=== PATIENT | male | born 1970 | race African-American/Black ===

== ENCOUNTER 2016-06-22 17:11 | Inpatient (IN) | payer SELFPAY ==
[~2016-06-22] VITALS: Ht 193 cm; Wt 77.5 kg
[2016-06-22 17:38] LABS: Urine RBC None Seen /hpf (0 - 3)
[2016-06-22 17:58] LABS: Urine Bilirubin Negative (Negative); Urine Blood Negative /uL (Negative); Urine Color Yellow (Yellow); Urine Glucose Normal (Normal); Urine Ketone Negative (Negative); Urine Nitrite Negative (Negative); Urine Squamous Epithelial Cell FEW /hpf (<5); Urine Urobilinogen Normal (Negative); Urine pH 8.5 (5.0-8.0)
[2016-06-22 17:59] LABS: Basophils # (auto) 0 uL; DEFINITIVE VIEW TRANSMISSION; Eosinophils # (auto) 0 uL; Hematocrit 20.3 % (41.0-53.0); Lymphocytes # (auto) 0.3 uL; Mean Corpuscular Hemoglobin 17.6 pg (28.0-32.0); Mean Corpuscular Hgb Conc. 30.9 g/dL (32.0-36.0); Mean Corpuscular Volume 56.8 fL (80.0-100.0); Mean Platelet Volume 7.4 fL (7.4-10.4); Monocytes # (auto) 0.2 uL; Monocytes % (auto) 2.6 % (0.0-12.0); Neutrophils # (auto) 7.6 uL; Neutrophils % (auto) 93.4 % (37.0-80.0); Platelet Count (auto) 705 10^3/uL (140-450); Red Cell Distribution Width 18.6 % (11.6-16.0); White Blood Cell 8.2 10^3/uL (4.4-10.8)
[2016-06-22 18:09] LABS: Hemoglobin 6.3 g/dL (13.5-17.5)
[2016-06-22 18:20] LABS: Albumin 2.9 g/dL (3.4-5.0); BUN/Creatinine Ratio 9.6; Bilirubin, Total 0.3 mg/dL (0.2-1.0); Potassium 3.6 mmol/L (3.5-5.1); Total Protein 7.4 g/dL (6.4-8.2)
[2016-06-22 18:20] LABS: Anisocytosis Slight; Hypochromia Marked; Microcytosis Marked; Ovalocytes FEW; Platelet Estimate Increased; Schistocytes FEW; Tear Drop Cells FEW
[2016-06-22] MEDS ORDERED: SODIUM CHLORIDE 0.9% 1,000 ML IV ONE ×2 (19:00→19:45)
[2016-06-22] MEDS ORDERED: ONDANSETRON HCL 4 MG/2 ML VIAL IV ONE (19:30)
[2016-06-22] MEDS ORDERED: MORPHINE SULFATE 4 MG/ML SYRG IV ONE (19:45)
[2016-06-22] MEDS ORDERED: PANTOPRAZOLE SODIUM 40 MG/10 ML VIAL IV ONE (19:45)
[2016-06-22] MEDS ORDERED: HYDROmorphone HCL 2 MG/ML VL IV ONE (20:30)
[2016-06-22 20:56] LABS: INR 0.95 (0.9-1.15); Partial Thromboplastin Time 24.1 sec (22.64-33.71); Prothrombin Time 10.3 sec (9.37-12.3)
[2016-06-22] MEDS ORDERED: cefTRIAXone 1GM/50ML D5W 50 ML IV ONE (21:15)
[2016-06-22] MEDS ORDERED: metroNIDAZOLE 500MG/100ML 100 ML IV ONE (21:15)
[2016-06-22] MEDS ORDERED: NITROGLYCERIN 0.4 MG SL TAB SL PRN (23:45)
[2016-06-22] MEDS: SODIUM CHLORIDE 0.9% 1,000 ML IV SCH (23:45)
[2016-06-22] MEDS ORDERED: MORPHINE SULF INJ 2 MG/ML SYRINGE 1ML IV PRN (23:45)
[2016-06-23] VITALS (17 sets, daily range): BP systolic 126–148; BP diastolic 65–94
[2016-06-23] MEDS ORDERED: HYDROmorphone HCL 2 MG/ML VL IM ONE (00:45)
[2016-06-23] MEDS ORDERED: HYDROmorphone HCL 2 MG/ML VL IV ONE (01:00)
[2016-06-23] MEDS: MORPHINE SULF INJ 2 MG/ML SYRINGE 1ML IV PRN ×4 (04:18→18:44)
[2016-06-23 08:49] LABS: Basophils # (auto) 0 uL; DEFINITIVE VIEW TRANSMISSION; Eosinophils # (auto) 0 uL; Eosinophils % (auto) 0.1 % (0.0-7.0); Hematocrit 25.5 % (41.0-53.0); Hemoglobin 7.8 g/dL (13.5-17.5); Lymphocytes # (auto) 1.1 uL; Lymphocytes % (auto) 10.6 % (10.0-50.0); Mean Corpuscular Hemoglobin 19.5 pg (28.0-32.0); Mean Corpuscular Hgb Conc. 30.8 g/dL (32.0-36.0); Mean Corpuscular Volume 63.5 fL (80.0-100.0); Mean Platelet Volume 7.5 fL (7.4-10.4); Monocytes % (auto) 9.7 % (0.0-12.0); Neutrophils # (auto) 8.2 uL; Neutrophils % (auto) 79.6 % (37.0-80.0); Platelet Count (auto) 576 10^3/uL (140-450); White Blood Cell 10.3 10^3/uL (4.4-10.8)
[2016-06-23 08:59] LABS: Red Cell Distribution Width 24.2 % (11.6-16.0)
[2016-06-23 09:08] LABS: BUN/Creatinine Ratio 15.1; Calcium 8.1 mg/dL (8.5-10.1); Potassium 4.5 mmol/L (3.5-5.1)
[2016-06-23] MEDS: SODIUM CHLORIDE 0.9% 1,000 ML IV SCH ×2 (09:45→22:20)
[2016-06-23 09:51] LABS: Anisocytosis Moderate; Platelet Estimate Increased
[2016-06-23 09:52] LABS: Hypochromia Marked; Large Platelets FEW; Microcytosis Marked; Ovalocytes MODERATE; Schistocytes FEW; Tear Drop Cells FEW
[2016-06-23] MEDS ORDERED: PANTOPRAZOLE SODIUM 40 MG/10 ML VIAL IV SCH (10:00)
[2016-06-23] MEDS: ONDANSETRON HCL 4 MG/2 ML VIAL IV PRN (16:59)
[2016-06-23 21:39] LABS: Hematocrit 24.3 % (41.0-53.0); Hemoglobin 7.5 g/dL (13.5-17.5)
[2016-06-23] MEDS: PANTOPRAZOLE SODIUM 40 MG/10 ML VIAL IV SCH (22:22)
[2016-06-24] VITALS (9 sets, daily range): BP systolic 135–146; BP diastolic 49–95
[2016-06-24] MEDS: SODIUM CHLORIDE 0.9% 1,000 ML IV SCH ×3 (06:11→20:56)
[2016-06-24 06:50] LABS: Basophils # (auto) 0 uL; DEFINITIVE VIEW TRANSMISSION; Eosinophils # (auto) 0 uL; Eosinophils % (auto) 0.1 % (0.0-7.0); Hemoglobin 8.6 g/dL (13.5-17.5); Lymphocytes # (auto) 1.4 uL; Lymphocytes % (auto) 17.6 % (10.0-50.0); Mean Corpuscular Hemoglobin 20.7 pg (28.0-32.0); Mean Corpuscular Hgb Conc. 31.8 g/dL (32.0-36.0); Mean Corpuscular Volume 65.2 fL (80.0-100.0); Mean Platelet Volume 7.6 fL (7.4-10.4); Monocytes # (auto) 0.6 uL; Monocytes % (auto) 7.5 % (0.0-12.0); Neutrophils # (auto) 6.1 uL; Neutrophils % (auto) 74.8 % (37.0-80.0); Platelet Count (auto) 501 10^3/uL (140-450); SUSPECT VIEW TRANSMISSION; White Blood Cell 8.1 10^3/uL (4.4-10.8)
[2016-06-24 07:03] LABS: Potassium 4.4 mmol/L (3.5-5.1)
[2016-06-24 07:04] LABS: INR 1.04 (0.9-1.15); Prothrombin Time 11.2 sec (9.37-12.3)
[2016-06-24 07:08] LABS: Red Cell Distribution Width 29.4 % (11.6-16.0)
[2016-06-24 07:12] LABS: Calcium 7.7 mg/dL (8.5-10.1)
[2016-06-24 08:01] LABS: Anisocytosis Moderate; Platelet Estimate Increased
[2016-06-24 08:02] LABS: Hypochromia Marked; Microcytosis Moderate
[2016-06-24 08:03] LABS: Ovalocytes FEW; Schistocytes MODERATE
[2016-06-24] MEDS ORDERED: SODIUM CHLORIDE LOCK 10 ML ONE (08:09)
[2016-06-24] MEDS ORDERED: MIDAZOLAM HCL 5 MG/ML-1ML VIAL ONE (08:09)
[2016-06-24] MEDS ORDERED: diphenhdrAMINE HCL 50 MG/1 ML VL ONE (08:09)
[2016-06-24] MEDS ORDERED: LIDOCAINE VISCOUS 2% 15ML UD ONE (08:09)
[2016-06-24] MEDS ORDERED: fentaNYL CITRATE 100 MCG/2 ML VL ONE (08:09)
[2016-06-24] MEDS: PANTOPRAZOLE SODIUM 40 MG/10 ML VIAL IV SCH (09:15)
[2016-06-24] MEDS ORDERED: LIDOCAINE VISCOUS 2% 15ML UD MT ONE (10:47)
[2016-06-24] MEDS ORDERED: fentaNYL CITRATE 100 MCG/2 ML VL IV ONE ×2 (10:48→10:51)
[2016-06-24] MEDS ORDERED: diphenhdrAMINE HCL 50 MG/1 ML VL IV ONE (10:48)
[2016-06-24] MEDS ORDERED: MIDAZOLAM HCL 5 MG/ML-1ML VIAL IV ONE ×2 (10:48→10:51)
[2016-06-24 14:30] LABS: Hematocrit 27.5 % (41.0-53.0); Hemoglobin 8.5 g/dL (13.5-17.5)
[2016-06-24] MEDS: MORPHINE SULF INJ 2 MG/ML SYRINGE 1ML IV PRN (20:44)
[2016-06-24] MEDS: ONDANSETRON HCL 4 MG/2 ML VIAL IV PRN (20:44)
[2016-06-24] MEDS: PANTOPRAZOLE 40 MG TAB PO SCH (20:56)
[2016-06-24 22:05] LABS: Hematocrit 25.9 % (41.0-53.0); Hemoglobin 8.2 g/dL (13.5-17.5)
[2016-06-25] VITALS (7 sets, daily range): BP systolic 135–154; BP diastolic 70–97
[2016-06-25] MEDS: MORPHINE SULF INJ 2 MG/ML SYRINGE 1ML IV PRN ×2 (03:41→21:01)
[2016-06-25] MEDS: ONDANSETRON HCL 4 MG/2 ML VIAL IV PRN (03:42)
[2016-06-25 06:18] LABS: Basophils # (auto) 0 uL; DEFINITIVE VIEW TRANSMISSION; Eosinophils # (auto) 0.1 uL; Eosinophils % (auto) 1.4 % (0.0-7.0); Hematocrit 27.8 % (41.0-53.0); Hemoglobin 8.6 g/dL (13.5-17.5); Lymphocytes # (auto) 1.5 uL; Lymphocytes % (auto) 18.6 % (10.0-50.0); Mean Corpuscular Hemoglobin 20.4 pg (28.0-32.0); Mean Corpuscular Hgb Conc. 30.8 g/dL (32.0-36.0); Mean Corpuscular Volume 66.3 fL (80.0-100.0); Mean Platelet Volume 8.4 fL (7.4-10.4); Monocytes # (auto) 0.5 uL; Neutrophils # (auto) 5.9 uL; Platelet Count (auto) 540 10^3/uL (140-450); SUSPECT VIEW TRANSMISSION; White Blood Cell 7.9 10^3/uL (4.4-10.8)
[2016-06-25 07:16] LABS: Anisocytosis Moderate; Burr Cells FEW; Hypochromia Marked; Microcytosis Marked; Ovalocytes FEW
[2016-06-25 07:17] LABS: Platelet Estimate Increased; Schistocytes MODERATE; Tear Drop Cells FEW
[2016-06-25] MEDS: PANTOPRAZOLE 40 MG TAB PO SCH ×2 (09:13→21:36)
[2016-06-25] MEDS: SODIUM CHLORIDE 0.9% 1,000 ML IV SCH ×2 (12:24→21:36)
[2016-06-26 06:01] VITALS: BP 130/82
[2016-06-26 08:00] VITALS: BP 144/83
[2016-06-26 09:00] VITALS: BP 144/83
[2016-06-26] MEDS: PANTOPRAZOLE 40 MG TAB PO SCH (09:35)
[2016-06-26] MEDS: SODIUM CHLORIDE 0.9% 1,000 ML IV SCH (09:36)
[2016-06-26 13:00] VITALS: BP 150/81
== END 2016-06-26 14:35 | disposition home or self-care (01) | DRG 378 ==
LOC: ER 17:11 → TELE 17:12 → TELE-EAST 06-23 00:50
PROVIDERS: ADMIT Internal Medicine; ATTEND Internal Medicine Pulmonary Disease
PROC: 30233N1 Transfusion of Nonautologous Red Blood Cells into Peripheral Vein, Percutaneous Approach (ICD-10-PCS; principal; 2016-06-23)
PROC: 0DB68ZX Excision of Stomach, Via Natural or Artificial Opening Endoscopic, Diagnostic (ICD-10-PCS; 2016-06-24)
DX: K92.2 Gastrointestinal hemorrhage, unspecified (principal); R18.8 Other ascites; K26.9 Duodenal ulcer, unspecified as acute or chronic, without hemorrhage or perforation; K21.0 Gastro-esophageal reflux disease with esophagitis; K92.1 Melena; D64.9 Anemia, unspecified; K44.9 Diaphragmatic hernia without obstruction or gangrene; F17.210 Nicotine dependence, cigarettes, uncomplicated; D50.0 Iron deficiency anemia secondary to blood loss (chronic); K29.80 Duodenitis without bleeding; F12.90 Cannabis use, unspecified, uncomplicated; Z82.49 Family history of ischemic heart disease and other diseases of the circulatory system; Z88.2 Allergy status to sulfonamides; Z87.11 Personal history of peptic ulcer disease; Z83.3 Family history of diabetes mellitus
CPT/HCPCS: 36415; 36430; 43239; 74176; 76705; 80048; 80053; 81001; 83540; 83550; 83690; 83735; 85014; 85018; 85025; 85610; 85730; 86850; 86900; 86901; 86920; 96361; 96365; 96368; 96375; C9113; G0434; J0696; J2250; J2405; J3490